=== PATIENT | female | born 1985 | race Caucasian/White ===

== ENCOUNTER → 2023-05-11 12:24 | Outpatient (BNVA) | payer OTHER, SELFPAY | PROVIDERS: Family Provider Nurse Practitioner; Visit Provider Nurse Practitioner | DX: R39.9 Unspecified symptoms and signs involving the genitourinary system (principal); N12 Tubulo-interstitial nephritis, not specified as acute or chronic | CPT/HCPCS: 81000; 87077; 87086; 87184 ==

== ENCOUNTER → 2023-07-17 15:02 | Outpatient (BNVA) | payer OTHER, SELFPAY | PROVIDERS: Family Provider Nurse Practitioner; Visit Provider Nurse Practitioner | DX: R39.9 Unspecified symptoms and signs involving the genitourinary system (principal) | CPT/HCPCS: 81000 ==

== ENCOUNTER → 2023-07-24 08:16 | Outpatient (BNVA) | payer OTHER, SELFPAY | PROVIDERS: Family Provider Nurse Practitioner; Visit Provider Family Medicine | DX: R10.31 Right lower quadrant pain (principal); E66.9 Obesity, unspecified | CPT/HCPCS: 80053; 80061; 84439; 84443; 85025 ==

== ENCOUNTER 2023-07-29 07:35 | Outpatient (CLI) | payer OTHER, SELFPAY ==
--- NOTE | 2023-07-29 07:45 | US_ITS ---
WS: [id number] US pelv w/transvag [id number] HISTORY: Right ovarian cyst COMPARISON: None available. Uterus: 12.0 cm x 6.4 cm x 4.1 cm. Enlarged uterus. Uterus is anteverted. 2 fibroids identified in the posterior myometrium. The largest in the central myometrium measures 1.8 x 1.0 x 1.4 cm. No significant distortion of the endometrium. Endometrium: 1.4 cm. Mildly thickened endometrium. No increased vascularity. Right ovary: 6.6 cm x 6.0 cm x 4.0 cm. Enlarged RIGHT ovary. Solid masses with mural nodularity and s light papillary projections are noted associated with the RIGHT ovary. There is also increased vascu larity. The largest solid nodule associated with the RIGHT ovary measures 3.0 x 2.7 x 3.5 cm. Left ovary: 3.0 cm x 2.6 cm x 1.7 cm. Normal size. Small follicles. Normal vascularity. No free fluid in the cul-de-sac. IMPRESSION: 1. O-RADS 4; intermediate risk for malignancy. Abnormal RIGHT ovary. Recommend evaluation by DIE TECHNICIAN aaron fernando. Ovarian neoplasm needs to be excluded. Recommend surgical excision. 2. Fibroid uterus. There are 2 small fibroids in the posterior myometrium. The largest measures 1.8 x 1.0 x 1.4 cm.
== END 2023-07-29 07:36 | disposition home or self-care (01) ==
LOC: RAD 07:36
PROVIDERS: Family Provider Nurse Practitioner; PCP Family Medicine; Visit Provider Family Medicine
DX: N83.201 Unspecified ovarian cyst, right side (principal)
CPT/HCPCS: 76830; 76856

== ENCOUNTER → 2023-08-04 11:35 | Outpatient (BNVA) | payer OTHER, SELFPAY | PROVIDERS: Family Provider Nurse Practitioner; PCP Family Medicine; Referring Provider Family Medicine; Visit Provider Obstetrics & Gynecology | DX: N83.8 Other noninflammatory disorders of ovary, fallopian tube and broad ligament (principal); E66.9 Obesity, unspecified; R10.31 Right lower quadrant pain; D25.1 Intramural leiomyoma of uterus; D25.2 Subserosal leiomyoma of uterus | CPT/HCPCS: 81500 ==

== ENCOUNTER → 2024-07-09 10:10 | Outpatient (BNVA) | payer OTHER, SELFPAY | PROVIDERS: Family Provider Nurse Practitioner; PCP Family Medicine; Visit Provider Emergency Medicine | DX: R39.9 Unspecified symptoms and signs involving the genitourinary system (principal) | CPT/HCPCS: 81000 ==

== ENCOUNTER → 2024-07-17 11:54 | Outpatient (BNVA) | payer OTHER, SELFPAY | PROVIDERS: Family Provider Nurse Practitioner; PCP Family Medicine; Visit Provider Family Medicine | DX: R39.9 Unspecified symptoms and signs involving the genitourinary system (principal) | CPT/HCPCS: 81000 ==

== ENCOUNTER → 2025-03-10 12:49 | Outpatient (BNVA) | payer OTHER, SELFPAY | PROVIDERS: Family Provider Nurse Practitioner; PCP Family Medicine | DX: N39.0 Urinary tract infection, site not specified (principal) | CPT/HCPCS: 81000; 87086 ==